=== PATIENT | female | born 1995 | race Caucasian/White ===

== ENCOUNTER 2020-06-03 18:02 | Inpatient (IN) ==
[2020-06-03 12:36] LABS: Basophils % 0.3 %; Eosinophils # 0.1 K/mcL (0.0-0.6); Eosinophils % 0.4 %; Hematocrit 36.1 % (35.3-44.9); Hemoglobin 12.1 g/dL (11.5-15.4); Immature Granulocytes % 1.2 % (0-4); Lymphocytes # 1.7 K/mcL (0.6-4.6); Lymphocytes % 14.6 %; Mean Corpuscular HGB Conc 33.5 g/dL (31.6-35.5); Mean Corpuscular Volume 89.6 fL (83.0-100.0); Mean Platelet Volume 12.1 fL (9.4-12.4); Monocytes # 0.4 K/mcL (0.0-1.3); Monocytes % 3.7 %; Neutrophils # 9.3 K/mcL (1.6-8.9); Platelet Count 149 K/mcL (140-400); Red Blood Count 4.03 M/mcL (3.82-4.97); Red Cell Distribution Width 13.1 % (11.5-14.5); Segmented Neutrophils % 79.8 %; White Blood Count 11.7 K/mcL (4.3-11.1)
[2020-06-03 12:42] LABS: Protein/Creatinine Ratio,Urine 0.33 mg/mg (0.00-0.20)
[2020-06-03 12:56] LABS: Alanine Aminotransferase 11 Units/L (7-52); Aspartate Amino Transferase 15 Units/L (13-39); BUN/Creatinine Ratio 23 (6-26); Blood Urea Nitrogen 9 mg/dL (6-20); Lactate Dehydrogenase 140 Units/L (140-271); Uric Acid 4.9 mg/dL (2.3-7.6); eGFR For African Americans > 60 (> 60); eGFR For Non-African Americans > 60 (> 60)
[2020-06-03] MEDS: Ringers Solution, Lactated 1,000 ML IVC SCH ×2 (14:20→21:30)
[2020-06-03] MEDS: Penicillin G Potassium 2,500,000 UNIT in 0.9 % Sodium Chloride 100 ML IVPB SCH ×2 (17:51→22:11)
[~2020-06-03 18:02] MED LIST: *HR* FentaNYL (PF) 100 MCG/2 ML VIAL IVP PRN; Azithromycin 500 MG in 0.9 % Sodium Chloride 250 ML IVPB ONE; EPHEDrine 50 MG/ML VIAL IVP PRN; Epidural Premix (fent/bupiv) 110 ML EP SCH; Famotidine 20 MG/2 ML VIAL IVP PRN; Lidocaine 1% 20 ML MDV ID PRN; Metoclopramide 10 MG/2 ML VIAL IVP PRN; Naloxone 0.4 MG/ML INJ IVP PRN; Ondansetron 4 MG/2 ML VIAL IVP PRN; Oxytocin 20 units/ LR 1000 mL 20 UNIT/1,000 ML BAG IVC SCH; Penicillin G Potassium 5,000,000 UNIT in 0.9 % Sodium Chloride Mini Bag 100 ML IVPB ONE; miSOPROStoL 25 MCG TABLET VG SCH
[2020-06-04] MEDS ORDERED: *HR* FentaNYL (PF) 100 MCG/2 ML VIAL ONE (00:33)
[2020-06-04] MEDS ORDERED: Benzocaine/Menthol 56 GM AEROSOL SPRAY TP PRN (04:22)
[2020-06-04] MEDS ORDERED: Lanolin 7 G OINT...G. TP PRN (04:22)
[2020-06-04] MEDS ORDERED: Measles/Mumps/Rubella Vacc 0.5 ML VIAL SQ PRN (04:22)
[2020-06-04] MEDS ORDERED: Oxytocin 20 units/ LR 1000 mL 20 UNIT/1,000 ML BAG IVC SCH (04:22)
[2020-06-04] MEDS: Ibuprofen 600 MG TABLET PO PRN ×3 (06:03→20:52)
[2020-06-04] MEDS: Prenatal Vit/FA 1 EACH TABLET PO SCH (07:34)
[2020-06-05] MEDS: Acetaminophen 325 MG TABLET PO PRN ×2 (02:12→11:15)
[2020-06-05 07:38] LABS: Basophils % 0.3 %; Monocytes % 3.3 %; Red Cell Distribution Width 13.6 % (11.5-14.5)
[2020-06-05 07:40] LABS: Eosinophils # 0.1 K/mcL (0.0-0.6); Eosinophils % 1.1 %; Hematocrit 31.1 % (35.3-44.9); Hemoglobin 10.1 g/dL (11.5-15.4); Immature Granulocytes % 1.1 % (0-4); Immature Platelets 11.1 % (1.1-6.1); Lymphocytes # 2.8 K/mcL (0.6-4.6); Lymphocytes % 22.5 %; Mean Corpuscular HGB Conc 32.5 g/dL (31.6-35.5); Mean Corpuscular Hemoglobin 29.8 pg (28.0-33.3); Mean Corpuscular Volume 91.7 fL (83.0-100.0); Mean Platelet Volume 11.5 fL (9.4-12.4); Monocytes # 0.4 K/mcL (0.0-1.3); Neutrophils # 8.8 K/mcL (1.6-8.9); Platelet Count 131 K/mcL (140-400); Red Blood Count 3.39 M/mcL (3.82-4.97); Segmented Neutrophils % 71.7 %; White Blood Count 12.3 K/mcL (4.3-11.1)
[2020-06-05] MEDS: Ibuprofen 600 MG TABLET PO PRN (08:02)
[2020-06-05] MEDS: Prenatal Vit/FA 1 EACH TABLET PO SCH (08:02)
[2020-06-05 08:13] VITALS: BP 120/78
== END 2020-06-05 13:58 | disposition home or self-care (01) | DRG 807 ==
LOC: 1NENULAB → 1NENUOBS 06-04 04:53
PROVIDERS: ADMIT Obstetrics & Gynecology; ATTEND Obstetrics & Gynecology